=== PATIENT | male | born 1970 | race Caucasian/White ===

== ENCOUNTER 2017-01-14 14:17 | Outpatient (CLI) | payer OTHER ==
--- NOTE | 2017-01-14 18:50 | MRI Report ---
EXAM: RIGHT KNEE MRI WITHOUT CONTRAST EXAM DATE: 01/14/2017 02:56 PM. CLINICAL HISTORY: Pain in right knee. Peripatellar pain. COMPARISON: None. TECHNIQUE: Multiplanar, multisequence T1-weighted and fluid-sensitive sequences of the knee without c ontrast. Other: None. FINDINGS: Bones: No marrow edema or stress reaction, no fractures. Articular Cartilage: Multifocal areas of grade 4 chondromalacia at the patellar apex and lateral fraser llar facet with irregular cortical bone. Trochlear groove also shows some irregular cartilaginous fissuring and grade 2-3 cartilaginous loss. Medial and lateral compartments are relatively spared. Medial Meniscus: The medial meniscus is intact. Lateral Meniscus: There is a tiny free edge of lateral meniscal tear on series 501 image 24. Cruciate Ligaments: The anterior and posterior cruciate ligaments are intact. Collateral Ligaments: The medial collateral and lateral collateral ligamentous structures are intact. Tendons: The quadriceps, patellar, semimembranosus, and popliteus tendons are unremarkable. Musculature: No edema or fatty atrophy. Other: Small joint effusion. No popliteal cyst. No loose bodies. The medial and lateral retinacula a re intact. Small amount of edema is seen in the prepatellar soft tissues. IMPRESSION: 1. 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 Marginal arthrosis also noted. 2. Medial and lateral compartments are relatively spared. 3. Tiny free edge lateral meniscal tear midportion on series 501 image 24. 4. Cruciates and collaterals appear unremarkable. [facility] SE[facility] Referring Provider Line: [phone] SITE ID: [id number]
== END 2017-01-14 14:18 | disposition home or self-care (01) ==
LOC: DI 14:17
PROVIDERS: ATTEND Orthopaedic Surgery
DX: M22.41 Chondromalacia patellae, right knee (principal); S83.281A Other tear of lateral meniscus, current injury, right knee, initial encounter

== ENCOUNTER 2017-08-01 09:40 | Outpatient (CLI) | payer OTHER ==
--- NOTE | 2017-08-01 16:33 | MRI Report ---
EXAM: RIGHT SHOULDER MRI WITHOUT CONTRAST EXAM DATE: 08/01/2017 11:07 AM. CLINICAL HISTORY: Right shoulder pain for 5 months not responding to physical therapy. COMPARISON: None. TECHNIQUE: Multiplanar, multisequence T1-weighted and fluid-sensitive sequences of the shoulder witho ut contrast. Other: None. FINDINGS: Acromioclavicular Region: The acromion is type II. The acromioclavicular joint is unremarkable. The c oracoacromial and coracoclavicular ligaments are intact. A minimal amount of fluid is in the subacrom ial/subdeltoid bursa. Glenohumeral Region: No subluxation. No effusion or loose bodies. The articular cartilage is unremark able. The glenohumeral ligaments and joint capsule are unremarkable. Bone Marrow: No fractures. Cysts are in the greater tuberosity. Labrum: A full-thickness tear of the posterior labrum is associated with a tiny paralabral cyst (seri es 41, image 22). Musculature/Rotator Cuff: The subscapularis tendon is unremarkable. The supraspinatus tendon demonstr ates mild edema and bursal sided irregularity. Infraspinatus and teres minor tendons are intact. No e sandee or fatty atrophy. Biceps Tendon: The long head of the biceps tendon and biceps geetha are intact. Other: The subcutaneous tissues are unremarkable. IMPRESSION: 1. Minimal subacromial/subdeltoid bursitis. 2. Full-thickness tear of the posterior labrum. 3. Mild supraspinatus tendinosis. [facility] SECTION Referring Provider Line: [phone] SITE ID: [id number]
== END 2017-08-01 09:41 | disposition home or self-care (01) ==
LOC: DI 09:40
PROVIDERS: ATTEND Physician Assistant
DX: S43.491A Other sprain of right shoulder joint, initial encounter (principal); M75.51 Bursitis of right shoulder; M75.91 Shoulder lesion, unspecified, right shoulder

== ENCOUNTER 2017-10-20 15:47 | Outpatient (CLI) | payer OTHER ==
--- NOTE | 2017-10-21 16:38 | MRI Report ---
Procedure Date: 10/20/2017 Accession Number: [id number] / [id number] Procedure: MRI - Ankle LT W/O CPT Code: FULL RESULT: EXAM: LEFT ANKLE/HINDFOOT MRI WITHOUT CONTRAST EXAM DATE: 10/20/2017 03:57 PM. CLINICAL HISTORY: Pain in left ankle and joints of left foot. COMPARISON: None. TECHNIQUE: Multiplanar, multisequence T1-weighted and fluid-sensitive sequences of the ankle/hindfoot without contrast. Other: None. FINDINGS: Bones and articular cartilage: There is an approximately 1 x 0.4 x 0.5 cm area of small subcortical cysts, slight cortical irregularity, mild to moderate cartilage thinning at the medial aspect of the talar dome. No discrete osteochondral fragment is seen. There is a small 6 x 4 mm area of mild subcortical marrow edema and tiny subcortical cyst at the medial aspect of the anterior calcaneal process. No acute fracture. Ligaments: The anterior and posterior tibiofibular, anterior and posterior talofibular, and calcaneofibular ligaments are intact. The deep and superficial deltoid and spring ligaments are intact. Anterior Tendons: The tibialis anterior, extensor hallucis longus, and extensor digitorum longus tendons are unremarkable. Medial Tendons: The tibialis posterior, flexor digitorum longus, and flexor hallucis longus tendons are unremarkable. Lateral Tendons: The peroneus brevis and longus are unremarkable. Achilles Tendon: The Achilles tendon is unremarkable. Musculature: No edema or fatty atrophy. Other: No effusions. The contents of the sinus tarsi and tarsal tunnel are unremarkable. No plantar fasciitis. Mild subcutaneous edema at the posterior medial and lateral aspects of the ankle. IMPRESSION: 1. An approximately 1 x 0.4 x 0.5 cm osteochondral lesion/injury at the medial aspect of the talar dome. 2. Small 6 x 4 mm area of mild subcortical marrow edema and tiny subcortical cyst at the medial aspect of the anterior calcaneal process. 3. No ligament or tendon injury. 4. Mild subcutaneous edema at the posterior medial and lateral aspects of the ankle. [facility] SECTION
== END 2017-10-20 15:48 | disposition home or self-care (01) ==
LOC: DI 15:47
PROVIDERS: ATTEND Orthopaedic Surgery
DX: M89.9 Disorder of bone, unspecified (principal); M85.672 Other cyst of bone, left ankle and foot; R60.0 Localized edema

== ENCOUNTER 2020-04-05 12:04 | Outpatient (CLI) | payer OTHER ==
--- NOTE | 2020-04-05 12:25 | XRAY Report ---
PROCEDURE: Chest 2 View X-Ray INDICATIONS: PRE EMPLOYMENT EXAMINATION TECHNIQUE: 2 view(s) of the chest. COMPARISON: None. FINDINGS: Surgical changes and devices: None. Lungs and pleura: No pleural effusions or pneumothorax. Lungs are clear. Mediastinum: Mediastinal contours are normal. Heart size is normal. Bones and chest wall: No suspicious bony abnormalities. Soft tissues appear unremarkable. IMPRESSION: Normal chest. Reviewed by: Rui Gallegos MD on 04/05/2020 12:24 PM PST Approved by: Rui Gallegos MD on 04/05/2020 12:24 PM PST Station ID: [id number]
== END 2020-04-05 12:05 | disposition home or self-care (01) ==
LOC: DI 12:04
PROVIDERS: ATTEND Family Medicine
DX: Z02.1 Encounter for pre-employment examination (principal); Z20.828 Contact with and (suspected) exposure to other viral communicable diseases

== ENCOUNTER 2020-04-05 13:25 | Outpatient (CLI) | payer OTHER | END 2020-04-05 13:26 | disposition home or self-care (01) | LOC: COV 13:25 | PROVIDERS: ATTEND Family Medicine | DX: Z20.828 Contact with and (suspected) exposure to other viral communicable diseases (principal) ==

== ENCOUNTER 2020-04-10 21:42 | Outpatient (CLI) | payer OTHER | END 2020-04-10 21:43 | disposition home or self-care (01) | LOC: COV 21:42 | PROVIDERS: ATTEND Family Medicine | DX: Z20.822 Contact with and (suspected) exposure to COVID-19 (principal) ==

== ENCOUNTER 2022-11-28 19:54 | Emergency (ER) | payer OTHER ==
[2022-11-28 20:08] VITALS: BP 121/79; O2SAT 97
[2022-11-28] MEDS ORDERED: cephALEXin 250 MG CAPSULE PO STA (20:49)
[2022-11-28] MEDS ORDERED: TETANUS/DIPHTHERIA/PERTUSSIS 0.5 ML SYRINGE IM ONE (20:50)
--- NOTE | 2022-11-28 20:52 | ED Physician Documentation ---
History of Present Illness - Stated complaint Stated Complaint: LT HAND INJ - Chief complaint Chief Complaint: Laceration - History obtained from History obtained from: Patient - History of Present Illness Timing: Today Pain level max: 0 Pain level now: 0 - Additonal information Additional information: 52-year-old male presents to the emergency department after a laceration from a fillet knife while cleaning fish tonight. Into the left thenar eminence. Unknown last tetanus shot. No active bleeding. No numbness or tingling. Worse with palpation, better with rest. No other injuries. Review of Systems Constitutional: denies: Fever, Chills Respiratory: denies: Cough Skin: denies: Rash Neurologic: denies: Headache PD PAST MEDICAL HISTORY - Past Medical History Cardiovascular: None Respiratory: None Endocrine/Autoimmune: None GI: None : None HEENT: Other Psych: None Musculoskeletal: Other Derm: None - Past Surgical History Ortho: Arthroscopic surgery - Present Medications Home Medications: Ambulatory Orders Medication Instructions Recorded Confirmed Fexofenadine/Pseudoephedrine 1 each PO DAILY 08/15/15 [Saida-D 24 Hour Tablet] Ibuprofen [Motrin] 800 mg PO Q8H PRN 01/23/16 01/23/16 cephALEXin [Keflex] 500 mg PO Q6H #28 cap 11/28/22 - Allergies Allergies/Adverse Reactions: Allergies Allergy/AdvReac Type Severity Reaction Status Date / Time No Known Drug Allergies Allergy Verified 11/28/22 20:02 PD ED PE NORMAL - Vitals Vital signs reviewed: Yes - General General: Alert and oriented X 3, No acute distress - Derm Derm: Warm and dry - Extremities Extremities: Other (L thenar emminence - 1 cm linear laceration. No active bleeding. The wound is not open or gaping. Neurovascular intact. No bony tenderness.) - Neuro Neuro: Alert and oriented X 3 - Psych Psych: Normal mood, Normal affect Results - Vitals Vitals: Vital Signs - 24 hr 11/28/22 19:56 Temperature 36.0 C L Heart Rate 71 Respiratory 18 Rate Blood Pressure 121/79 O2 Saturation 97 Oxygen O2 Source Room air PD Medical Decision Making - ED course Complexity details: considered differential, d/w patient ED course: Patient with a laceration to the left thenar eminence. The wound is already closed. No repair needed. No bleeding. Unclear how deep the puncture wound was, therefore we will cover him with cephalexin. Tdap given. Warnings of infection and instructions on wound care given at bedside. Also counseled on how to minimize scarring. Patient counseled regarding signs and symptoms for which I believe and urgent re-evaluation would be necessary. Patient with good understanding of and agreement to plan and is comfortable going home at this time This document was made in part using voice recognition software. While efforts are made to proofread this document, sound alike and grammatical errors may occur. Departure - Departure Disposition: 01 Home, Self Care Clinical Impression: Hand laceration Qualifiers: Encounter type: initial encounter Foreign body presence: without foreign body Laterality: left Qualified Code(s): S61.412A - Laceration without foreign body of left hand, initial encounter Condition: Good Instructions: ED Laceration Hand Follow-Up: your,doctor as needed [Other] Prescriptions: cephALEXin [Keflex] 500 mg PO Q6H #28 cap Comments: You were given a tetanus shot today. Your prescriptions were sent to [facility] in [place]. Please follow-up with your doctor for further care as needed. Keep the wound clean. Return if you notice redness, swelling or drainage from the wound. Forms: PCP List Discharge Date/Time: 11/28/22 21:23
== END 2022-11-28 21:23 | disposition home or self-care (01) ==
LOC: ED 19:54
DX: S61.412A Laceration without foreign body of left hand, initial encounter (principal); W26.0XXA Contact with knife, initial encounter; Y93.G1 Activity, food preparation and clean up
CPT/HCPCS: 90715; 99282; 99283; A9270